=== PATIENT | female | born 1975 | race Native Hawaiian/Other Pacific Islander ===

== ENCOUNTER 2019-02-02 01:01 | Emergency (ER) | payer OTHER ==
[~2019-02-02] VITALS: Ht 170.2 cm; Wt 122.5 kg
[2019-02-02 01:01] VITALS: BP 159/74; TEMP 98.1
[2019-02-02 01:38] LABS: PLATELET COUNT 232 K/uL (152-353)
[2019-02-02] MEDS ORDERED: TYLENOL325 MG PO (04:25)
[2019-02-02] MEDS ORDERED: CELEXA20 MG PO (04:25)
[2019-02-02] MEDS ORDERED: DIVA500T2 PH (04:26)
[2019-02-02] MEDS ORDERED: PEPCID40 MG PH (04:26)
[2019-02-02] MEDS ORDERED: FLONASE AL50 MCG/ACT INH (04:27)
[2019-02-02] MEDS ORDERED: FUROSEMIDE40 MG PO (04:27)
[2019-02-02] MEDS ORDERED: GLIP10TA55 PO (04:28)
[2019-02-02] MEDS ORDERED: GABA300C2 PO (04:28)
[2019-02-02] MEDS ORDERED: MAG-AL PLUS PO (04:29)
[2019-02-02] MEDS ORDERED: MAGNESIUM400 M1 PO (04:29)
[2019-02-02] MEDS ORDERED: MIDODRINE5 MG PO (04:30)
[2019-02-02] MEDS ORDERED: MIRALAX3350 N1 PO (04:31)
[2019-02-02] MEDS ORDERED: POTA10CA3 PO (04:31)
[2019-02-02] MEDS ORDERED: TRADJENTA5 M1 PO (04:32)
[2019-02-02] MEDS ORDERED: PRAVACHOL20 MG PO (04:32)
[2019-02-02] MEDS ORDERED: FURO20TA67 PO (04:33)
[2019-02-02] MEDS ORDERED: CETI10TA PO (04:33)
[2019-02-11] MEDS ORDERED: ABILIFY 10MG TAB PO (08:27)
[2019-02-11] MEDS ORDERED: CHOL100034 PO (08:27)
[2019-02-11] MEDS ORDERED: DIVA500T2 PO (08:28)
[2019-02-11] MEDS ORDERED: FOLI1TAB26 PO (08:28)
[2019-02-11] MEDS ORDERED: ESCI10TA PO (08:28)
[2019-02-11] MEDS ORDERED: CYAN10009 IM (08:29)
== END 2019-02-02 03:15 | disposition other institution (70) ==
LOC: ED 01:01
PROVIDERS: Family Medicine
DX: R46.89 Other symptoms and signs involving appearance and behavior (principal); F20.89 Other schizophrenia; Z04.6 Encounter for general psychiatric examination, requested by authority
CPT/HCPCS: 80053; 81000; 85027; 93005; 99283; 99285